=== PATIENT | female | born 1965 | race Caucasian/White ===

== ENCOUNTER 2016-12-10 16:09 | Emergency (ER) | payer BC ==
[~2016-12-10] VITALS: Ht 167.6 cm; Wt 71.7 kg
[2016-12-10 16:10] VITALS: BP_SYST 116
[2016-12-10] MEDS ORDERED: NS 1000 ML BAG IV ONE (16:30)
[2016-12-10] MEDS ORDERED: ONDANSETRON HCL 4 MG/2 ML VIAL IVP ONE (16:45)
[2016-12-10] MEDS ORDERED: LOPERAMIDE HCL 2 MG CAPSULE PO ONE (16:45)
[2016-12-10] MEDS ORDERED: KETOROLAC TROMETHAMINE 30 MG VIAL IVP ONE (16:45)
[2016-12-10 16:56] LABS: BASOPHILS % (AUTO) 0.4 % (0.0-2.0); EOSINOPHILS # (AUTO) 0.1 K/uL (0.0-0.4); EOSINOPHILS % (AUTO) 1.4 % (0.0-4.0); HEMOGLOBIN 11.8 g/dL (12.0-16.0); LYMPHOCYTES # (AUTO) 1.4 K/uL (1.0-5.5); LYMPHOCYTES % (AUTO) 20.4 % (20.5-51.5); MEAN CORPUSCULAR HEMOGLOBIN 30 pg (27-31); MEAN CORPUSCULAR HGB CONC 35 % (32-36); MEAN CORPUSCULAR VOLUME 86 fL (79.0-98.0); MONOCYTES # (AUTO) 0.7 K/uL (0.0-1.0); MONOCYTES % (AUTO) 9.8 % (1.7-9.3); NEUTROPHILS # (AUTO) 4.8 K/uL (1.8-7.7); PLATELET COUNT (AUTO) 366 K/uL (130-430); RED BLOOD CELL COUNT(AUTO) 3.96 MIL/uL (4.2-6.2); RED CELL DISTRIBUTION WIDTH 12.6 % (9.0-15.0)
[2016-12-10 17:14] LABS: CALCIUM 8.5 mg/dL (8.4-11.0); CREATININE 1.08 mg/dL (0.55-1.30); POTASSIUM 3.2 mmol/L (3.5-5.1)
[2016-12-10 17:18] LABS: INR 1.1 (0.8-1.2); PROTHROMBIN TIME 12.1 SECS (9.5-12.5)
[2016-12-10 17:19] LABS: ALBUMIN 2.9 g/dL (3.4-4.8); TOTAL BILIRUBIN 0.5 mg/dL (0.0-1.0); TOTAL PROTEIN, SERUM 6.9 g/dL (6.4-8.3)
[2016-12-10 20:02] VITALS: BP_SYST 98
== END 2016-12-10 20:02 | disposition home or self-care (01) ==
LOC: SED 16:09
DX: R19.7 Diarrhea, unspecified (principal); R11.0 Nausea; R10.84 Generalized abdominal pain; I10 Essential (primary) hypertension; Z88.0 Allergy status to penicillin
CPT/HCPCS: 36415; 80053; 83605; 83690; 85025; 85610; 85730; 87040; 93005; 96361; 96374; 96375; 99285; J1885; J2405; J7030

== ENCOUNTER 2022-03-25 21:12 | Observation (INO) | payer BC ==
[~2022-03-25] VITALS: Ht 167.6 cm; Wt 95.3 kg
[2022-03-25 21:53] VITALS: BP_SYST 142
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
--- NOTE | 2022-03-25 21:55 | NUR ---
Pt c/o numbness on L side of the body, Dr Alberto notified, Dr Alberto evaluating patient in the triage room, per Dr Alberto ABG needed.
--- NOTE | 2022-03-25 22:00 | NUR ---
Dr Laguna notified patient c/o weakness / numbness on L side of the body.
--- NOTE | 2022-03-25 22:10 | NUR ---
Code stroke activated.
--- NOTE | 2022-03-25 22:12 | NUR ---
Pt taken to CT via wheelchair from the waiting room.
--- NOTE | 2022-03-25 22:25 | NUR ---
Placed in room 2 . Placed on satellite project site monitor, blood pressure machine and pulse oximeter. To gown for exam. Side rails up. Report given to Darline SEPULVEDA(bety).
--- NOTE | 2022-03-25 22:40 | NUR ---
NEURO TELEMED REQUEST MADE
[2022-03-25 22:58] LABS: BILIRUBIN,URINE NEGATIVE (NEGATIVE); BLOOD, URINE NEGATIVE (NEGATIVE); CLARITY/URINE CLEAR (CLEAR); COLOR,URINE YELLOW (YELLOW); GLUCOSE,URINE NEGATIVE (NEGATIVE); KETONES,URINE NEGATIVE (NEGATIVE); LEUKOCYTE ESTERASE ,URINE NEGATIVE (NEGATIVE); NITRITE, URINE NEGATIVE (NEGATIVE); PROTEIN URINE NEGATIVE (NEGATIVE); UROBILINOGEN,URINE 0.2 (0.2-1.0)
[2022-03-25 23:02] LABS: ANION GAP 6 (5-15); BASOPHILS # (AUTO) 0.1 K/uL (0.0-0.2); BASOPHILS % (AUTO) 1.9 % (0.0-2.0); CALCIUM 9.5 mg/dL (8.4-11.0); CHLORIDE 101 mmol/L (98-107); CREATININE 1.09 mg/dL (0.55-1.30); EOSINOPHILS # (AUTO) 0.1 K/uL (0.0-0.4); EOSINOPHILS % (AUTO) 2.2 % (0.0-4.0); GLUCOSE 100 mg/dL (70-99); HEMATOCRIT 38.6 % (36-48); LYMPHOCYTES # (AUTO) 1.9 K/uL (1.0-5.5); LYMPHOCYTES % (AUTO) 29.8 % (20.5-51.5); MEAN CORPUSCULAR HEMOGLOBIN 30 pg (27-31); MEAN CORPUSCULAR HGB CONC 34 % (32-36); MEAN CORPUSCULAR VOLUME 90 fL (79.0-98.0); MONOCYTES # (AUTO) 0.4 K/uL (0.0-1.0); MONOCYTES % (AUTO) 5.5 % (1.7-9.3); NEUTROPHILS # (AUTO) 3.9 K/uL (1.8-7.7); NEUTROPHILS % (AUTO) 60.6 % (40.0-70.0); PLATELET COUNT (AUTO) 188 K/uL (130-430); POTASSIUM 3.7 mmol/L (3.5-5.1); RED CELL DISTRIBUTION WIDTH 13.2 % (9.0-15.0); SODIUM SERUM 139 mmol/L (136-145); UREA NITROGEN, BLOOD 23 mg/dL (8-21); WHITE BLOOD COUNT (AUTO) 6.4 K/uL (4.8-10.8)
[2022-03-25] MEDS ORDERED: NITR-85 PO (23:05)
[2022-03-25 23:07] LABS: BARBITURATE, URINE NEGATIVE (NEG <=200); BENZODIAZEPINE, URINE NEGATIVE (NEG <=150); CANNABINOID, URINE NEGATIVE (NEG <=50); COCAINE, URINE NEGATIVE (NEG <=150); METHAMPHETAMINES SCREEN,URINE NEGATIVE (NEG <=500); OPIATE, URINE NEGATIVE (NEG <=100); PHENCYCLIDINE SCREEN,URINE NEGATIVE (NEG <=25); UR TRICYCLIC ANTIDEPRESSANTS NEGATIVE (NEG <=300); URINE AMPHETAMINE NEGATIVE (NEG <=500); URINE METHADONE NEGATIVE (NEG <=200); URINE OXYCODONE SCREEN NEGATIVE (NEG <=100); URINE PROPOXYPHENE SCREEN NEGATIVE (NEG <=300)
[2022-03-25] MEDS ORDERED: PHEN-726 PO (23:08)
[2022-03-25] MEDS ORDERED: IBUP-1969 PO (23:08)
[2022-03-25] MEDS ORDERED: PHEN-727 PO (23:08)
[2022-03-25 23:10] LABS: ALANINE AMINOTRANSFERASE 28 U/L (12-78); ALBUMIN 3.6 g/dL (3.4-4.8); ASPARTATE AMINOTRANSFERASE 20 U/L (10-37); TOTAL BILIRUBIN 0.4 mg/dL (0.0-1.0)
[2022-03-25 23:11] LABS: GFR AFRICAN AMERICAN 66 mL/min (>90)
--- NOTE | 2022-03-25 23:13 | NUR ---
NEUROLOGY SPEAKING TO PATIENT AND ASSESSING IN BEDSIDE VIDEO CONSULT.
--- NOTE | 2022-03-26 00:11 | NUR ---
CT CONSENT COMPLETED.
[2022-03-26] MEDS ORDERED: iohexoL 350 mgI/mL, 100 ML INFUS..BTL IV ONE (00:39)
--- NOTE | 2022-03-26 04:15 | NUR ---
Admit bed requested Patient will be admitted to care of . Admitted to TELE unit. Diagnosis R/O CVA Inpatient (Yes or No) NO Observation (Yes or No) YES Orientation concerns or request close to nursing station (Yes or No) NO Covid Status NEGATIVE On vent or bipap NO Isolation requirements NO Needs a sitter NO From Home (Yes or if No enter name of facility) YES Requires Dialysis (Yes or No) NO Med Rec Completed (Yes of No) PENDING
--- NOTE | 2022-03-26 05:11 | NUR ---
Patient will be admitted to care of [facility]. Admitted to unit. Will go to room . Belongings list completed. Complete and up to date summary report printed. SBAR report to be given at bedside with opportunity for questions.
[2022-03-26 05:30] VITALS: BP_SYST 118
--- NOTE | 2022-03-26 07:00 | NUR ---
Attempted to call morning consult for Dr. Crouch. Phone message said system was down and to call back later. Will endorse to morning manager monitoring Melinda
--- NOTE | 2022-03-26 07:34 | NUR ---
THIS RN TO ENDORSE TO ONCOMING NURSE TO COMPLETE BELONGINGS LIST AND MED REC-PATIENT UNAWARE OF DOSE.
[2022-03-26 08:00] VITALS: BP_SYST 125
[2022-03-26 12:00] VITALS: BP_SYST 136
[2022-03-26] MEDS ORDERED: IBUPROFEN 600 MG TABLET PO PRN (13:00)
[2022-03-26] MEDS ORDERED: NITROFURANTOIN MONOHYD/M-CRYST 100 MG CAPSULE (MacroBID) PO ONE (13:15)
[2022-03-26] MEDS ORDERED: METOPROLOL SUCCINATE 25 MG TAB.SR.24H (TOPROL XL) PO ONE (13:15)
[2022-03-26 14:38] VITALS: BP_SYST 132
--- NOTE | 2022-03-26 14:50 | NUR ---
Dietitian Recommendations * 2 gm Na diet * Lipid panel (outpatient) to assess current cholesterol levels LP, RD Please refer to Nutrition Assessment for details. Addendum: 03/26/22 at [address] Amended: Links added.
[2022-03-26] MEDS ORDERED: PHENAZOPYRIDINE HCL 100 MG TABLET PO SCH (15:00)
[2022-03-26] MEDS ORDERED: NITROFURANTOIN MONOHYD/M-CRYST 100 MG CAPSULE (MacroBID) PO SCH (21:00)
[2022-03-27] MEDS ORDERED: METOPROLOL SUCCINATE 25 MG TAB.SR.24H (TOPROL XL) PO SCH (09:00)
== END 2022-03-26 23:27 | disposition home or self-care (01) ==
LOC: SED 21:12 → STU 03-26 04:15
PROVIDERS: ADMIT Internal Medicine; ATTEND Internal Medicine
DX: T58.01XA Toxic effect of carbon monoxide from motor vehicle exhaust, accidental (unintentional), initial encounter (principal); Z20.822 Contact with and (suspected) exposure to COVID-19; F06.4 Anxiety disorder due to known physiological condition; E04.2 Nontoxic multinodular goiter; G45.9 Transient cerebral ischemic attack, unspecified; R29.700 NIHSS score 0; I10 Essential (primary) hypertension; Z88.0 Allergy status to penicillin; Z79.899 Other long term (current) drug therapy
CPT/HCPCS: 99291; 80307; 80053; 85025; 86886; 86900; 86901; 84484 ×2; 36415; 93005; 71045; 70450; 76376 ×2; 36600; 82803; 99292; 81003; 82962; 84443; 70496; 70498; 87426; 80048; G0378; Q9967